=== PATIENT | male | born 1945 | race Caucasian/White ===

== ENCOUNTER 2016-08-29 12:19 | Inpatient (IN) | payer MEDICARE ==
[~2016-08-29] VITALS: Ht 170.2 cm; Wt 113.0 kg
[~2016-08-29 12:19] MED LIST changes: -ASPI1TAB69 PO; -DILA4TAB2 PO; -LISI-515 PO; -MULT1TAB85 PO; -MULTTAB67 PO; -PRIN20TA2 PO; -TAMS0.4C4 PO; -VITA10002 PO; -WALKER WHEELS/F1 MIS
[2016-08-29] MEDS ORDERED: MULTTAB67 PO (12:30)
[2016-08-29] MEDS ORDERED: TAMS0.4C4 PO (12:30)
[2016-08-29] MEDS ORDERED: VITA10002 PO (12:30)
[2016-08-29] MEDS ORDERED: ASPI1TAB69 PO (12:30)
[2016-08-29] MEDS ORDERED: LISI-515 PO (12:30)
--- NOTE | 2016-08-31 17:19 | MH ---
cc: TYLOR MANZANO MD, ROHIT K. M.D. IRANPUR, PERVEZ M.D. CROUCH, EUGENE M. MD DATE OF ADMISSION 09/02/2016 ADMISSION DIAGNOSIS Lumbar degenerative disk disease HISTORY OF PRESENT ILLNESS This is a 71-year-old male who presented to us for evaluation of bilateral posterior leg pain. He states the pain started years ago in the inferior aspect of his buttocks and radiates into the posterior calves bilaterally. On the left side he has pain that radiates into the left lateral leg to the ankle which also started about a month ago. He describes the pain as being sharp and intermittent. He has been to pain management and had injections which are becoming less effective. He states the injections last approximately four weeks. He has been to physical therapy which did not help much. He denies any bowel or bladder incontinence. He states walking seems to aggravate his symptoms and usually uses a cane. Driving more than 5-10 minutes aggravates his symptoms. He experiences back pain, but most of his pain is in the posterior aspect of the thighs radiating into the lateral calves and ankles. He states in the mornings his pain is 10/10. MRI of the lumbar spine from June 13, 2016 reveals extensive degenerative scoliosis as well as L3-L4 grade 1 spondylolisthesis with severe spinal stenosis from facet ligamentum flavum hypertrophy along with degenerative disk disease at multiple levels. PAST MEDICAL HISTORY 1. Hypertension, 2. Coronary artery disease with bypass surgery in 1998, 3. Hyperlipidemia, 4. Osteoarthritis with hip replacement in 1985 initially and then two other times; he is unsure of the dates 5. Knee replacement in 2000 MEDICATIONS Current, 1. Lisinopril 20 mg daily. 2. Triamterene/Hydrochlorothiazide 37.5 daily. 3. Atorvastatin 80 mg daily. 4. Flomax 0.4 mg daily 5. Fluoxetine 60 mg daily. 6. Gabapentin 600 mg. He takes 4 tablets a day. ALLERGIES CODEINE - HEADACHE FAMILY HISTORY His mother is at 81 years old of a stroke. His father is at 25 as a casualty of World War II. His brother is alive 60 years old in good health. 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 He is single. He has two children. He quit smoking 30 years ago. He drinks 0-2 drinks per week of alcohol. REVIEW OF SYSTEMS CONSTITUTIONAL: Denies any fever or chills. EARS, NOSE AND THROAT: No pharyngitis, exudates or bloody drainage from his nose CARDIOVASCULAR: Denies any chest pain or palpitations RESPIRATORY: No cough or shortness of breath. GENITOURINARY: No dysuria or hematuria. MUSCULOSKELETAL: Positive for low back pain and leg pain. SKIN: No rashes or pruritus. NEUROLOGIC: No difficulty with speech or memory GASTROINTESTINAL: No nausea, vomiting or abdominal pain PSYCHIATRIC: No anxiety or depression symptoms ENDOCRINE: No polyuria or polydipsia. HEMATOLOGIC: Positive for bruising but no bleeding tendencies PHYSICAL EXAMINATION HEAD: Normocephalic, atraumatic NECK: Supple. No carotid bruits heard on auscultation. LUNGS: Clear to auscultation bilaterally. CARDIAC: Rate and rhythm normal, S1, S2 ABDOMEN: Soft, nontender. Positive bowel sounds. SKIN: No cyanosis or erythema. MUSCULOSKELETAL: He has 5/5 strength in the lower extremities. He ambulates without an assistive device NEUROLOGIC: He is awake, alert, oriented. Cranial nerves II-XII are grossly intact. His speech is fluent. Comprehension is good. Reflexes are 2+ in the lower extremities. IMPRESSION A 70-year-old male with progressively worsening low back pain, in particular, neurogenic claudication symptoms and limited ambulatory status even with a cane. He has severe L3-L4 spinal stenosis from facet ligamentum flavum hypertrophy along with degenerative disk disease and a grade 1 spondylolisthesis. He has multilevel degenerative disk disease and facet arthropathy at other levels along with degenerative scoliosis. He has failed conservative treatment measures including physical therapy and he is requesting that we undertake surgical intervention. PLAN We have discussed the treatment options with the patient and we have recommended an L3-L4 transforaminal decompression with interbody fusion and pedicle screw fixation. The procedure as well as the risk, benefit, alternative and recovery time were explained in great detail with the patient. We have discussed the risks along with surgery include but not limited to bleeding, infection, muscle weakness, voice hoarseness, difficulty swallowing, heart attack, stroke, blood clots, non fusion, scar tissue formation, among others. We have obtained cardiac clearance from Dr. Manzano. The patient understands the procedure as well as the risks involved and is requesting that we proceed and is therefore scheduled accordingly. Jr Medina MD Dictated by JEROME Corrales/ /1:24 PM /4:46 PM
[2016-09-02] MEDS ORDERED: SODIUM CHLORID 0.9% 500 ML IV SCH (06:30)
[2016-09-02] MEDS ORDERED: VANCOMYCIN 1,000 MG/NS 250 ML IV SCH ×2 (06:30)
[2016-09-02] MEDS ORDERED: METOPROLOL TARTRATE 25 MG TAB PO PRN (06:30)
[2016-09-02] MEDS ORDERED: SODIUM CHLOR 0.9% 1000 ML INJ 1,000 ML IV SCH (06:30)
[2016-09-02] MEDS ORDERED: LACTATED RINGER'S 1000 ML IV SCH (06:30)
[2016-09-02] MEDS ORDERED: INSULIN HUMAN REGULAR 1,000 UNITS/10 ML VIAL SQ PRN (06:30)
[2016-09-02] MEDS ORDERED: ACETAMINOPHEN 1000 MG/100 ML VIAL IV ONE (06:44)
[2016-09-02] MEDS ORDERED: ARTIFICIAL TEARS OPTH OINT 3.5 APPLIC/3.5 GM TUBO ONE (06:45)
[2016-09-02] MEDS ORDERED: MULT1TAB85 PO (07:18)
[2016-09-02 07:25] VITALS: BP 150/88; PULSE 57; RESP 20; TEMP 98; O2SAT 99
[2016-09-02] MEDS ORDERED: GELFOAM SIZE 100 ONE (07:55)
[2016-09-02] MEDS ORDERED: THROMBIN (TOPICAL) 5,000 UNIT VIAL ONE (07:55)
[2016-09-02] MEDS ORDERED: FAMOTIDINE 20 MG/2 ML VIAL ONE (08:31)
[2016-09-02] MEDS ORDERED: DEXAMETHASONE SOD PHOS 4 MG/ML VIAL ONE (08:32)
[2016-09-02] MEDS ORDERED: MIDAZOLAM HCL 2 MG/2 ML VIAL ONE (08:32)
[2016-09-02] MEDS: BUPIVACAINE/EPINEPHRINE 0.5% PF 30 ML VIAL ONE ×2 (09:34→12:55)
[2016-09-02] MEDS: VANCOMYCIN HCL 1000 MG VIAL ONE ×2 (09:45→12:59)
[2016-09-02] MEDS ORDERED: ONDANSETRON HCL 4 MG/2 ML VIAL IV PUSH ONE (12:00)
[2016-09-02] MEDS ORDERED: ePHEDrine/NS 25 MG/5 ML SYR IV ONE (12:00)
[2016-09-02] MEDS ORDERED: VASOPRESSIN INJ 20 UNITS/ML VIAL IV ONE (12:00)
[2016-09-02] MEDS ORDERED: PROPOFOL 200 MG/20 ML AMP IV ONE (12:00)
[2016-09-02] MEDS ORDERED: PHENYLEPH/NS 1000 MCG/10 ML SYR IV ONE (12:00)
[2016-09-02] MEDS ORDERED: SODIUM CHLORID 0.9% 500 ML INJ 500 ML IV ONE (12:00)
[2016-09-02] MEDS ORDERED: LACTATED RINGER'S 1000 ML INJ 1,000 ML IV ONE (12:00)
[2016-09-02] MEDS ORDERED: CALCIUM GLUCONATE INJ 1 GM in SODIUM CHLORIDE 0.9% INJ 100 ML IV PRN (13:32)
[2016-09-02] MEDS ORDERED: POTASSIUM CHLOR 20 MEQ PREMIX 100 ML IV PRN (13:32)
[2016-09-02] MEDS ORDERED: DO NOT ADM ANY ANTICOAGULANT DRUGS XX PRN (13:32)
[2016-09-02] MEDS ORDERED: MAGNESIUM SULFATE INJ 2 GM in SODIUM CHLORIDE 0.9% INJ 100 ML IV PRN (13:32)
--- NOTE | 2016-09-02 13:34 | PD.OP ---
MD Pieter Og MD Operative Report Date of Surgery: Sep 02, 2016 Preoperative Diagnosis: Severe L3-4 degenerative disc disease with grade 1 spondylolisthesis, facet and ligamentum flavum hypertrophy and severe spinal stenosis; intractable low back pain with neurogenic claudication Postoperative Diagnosis: Same Procedure: Lumbar L3-4 transforaminal interbody fusion; bilateral L3-4 decompressive laminectomies; L3-4 pedicle screw fixation; L3-4 interbody cage placement; microsurgical technique Anesthesia: Gen. endotracheal by Lori Tate Surgeon: Jr Medina M.D. Event Lighting Specialist(s): Erica Larkin Operation and Findings: Following initiation of general endotracheal anesthesia, the patient had a Cooper catheter placed along with sequential compression devices. A gram of vancomycin was administered intravenously and he was turned in a prone position on a Juliocesar frame, on a Jim table, and all pressure points adequately padded. The lumbosacral region was then prepped with Chloraprep and sterilely draped with Ioban along the usual sterile draping. A midline skin incision was then made extending from the L3-4 level after infiltrating the skin with 0.5% Marcaine with epinephrine solution extending down through the fascia. The muscle fibers were split using avascular fatty plane and detached from the underlying facets, transverse process and lateral portion of lamina on the left side and a self-retaining retractor used for exposure. Intraoperative fluoroscopy was also used for level of confirmation along with microscope magnification for further dissection. There was significant facet and ligamentum flavum hypertrophy noted at the L3-4 levels. Bilateral L3 and L4 lamina as well as the medial portion of the left L3-4 facet was resected with a drill bit along with the lamina and there was severe foraminal and spinal stenosis from hypertrophied ligamentum flavum and facet which were decompressed bilaterally. The hypertrophied ligamentum flavum was adherent to the dura but this was dissected out without any perforation or CSF leak. There was significant disc height collapse along with disc protrusion and spondylolisthesis also leading to the foraminal stenosis. Epidural hemostasis was achieved with bipolar cautery and Gelfoam with thrombin. Subsequently entered into the disc space at the L3-4 level with a #15 blade and dru were used for discectomy. I then placed PEEK cage packed with local autograft bone and more local autograft bone was packed adjacent to the cage in interspace for added interbody fusion. With placement of the cage, I was able to distract the interspace and opened up the foramen further bilaterally. Subsequently in order to facilitate the fusion and provide stabilization, pedicle screw fixation was undertaken using Penhook spine screws on entry point at the left L3 and L4 levels at the junction of the transverse process and facet. Subsequently using AP and lateral fluoroscopy tap and screw placement. The screws were then connected with a tory and locked in place with caps. The construct appeared very secure at this point. The area was then copiously irrigated with Vancomycin solution and powder. The retractors were removed and the bipolar cautery used for hemostasis. The muscle fascia was then approximated using 2-0 Vicryl interrupted stitches and then 3-0 Vicryl subcuticular stitches also placed in interrupted fashion. The final skin closure was completed with Mastisol and Steri-Strips. A sterile dressing was then applied. The patient then turned in supine position, extubated and taken to recovery room. There were no intraoperative complications. All sponge and needle counts were correct at the end of procedure. Estimated blood loss about 300 ml. Jr Medina MD Sep 02, 2016 13:34
[2016-09-02] MEDS ORDERED: fentaNYL CITRATE 250 MCG/5 ML AMP ONE (13:42)
[2016-09-02] MEDS ORDERED: ONDANSETRON HCL 4 MG/2 ML VIAL IV PRN (13:45)
[2016-09-02] MEDS ORDERED: SODIUM CHLORIDE 0.9% FLUSH 10 ML FLUSH IV FLUSH PRN (13:45)
[2016-09-02] MEDS ORDERED: ALUMINUM/MAGNESIUM/SIMETH 30 ML CUP PO PRN (13:45)
[2016-09-02] MEDS ORDERED: HYDROmorphone HCL 2 MG TAB PO PRN (13:45)
[2016-09-02] MEDS ORDERED: CYCLOBENZAPRINE HCL 10 MG TAB PO PRN (13:45)
[2016-09-02] MEDS ORDERED: ZOLPIDEM TARTRATE 5 MG TAB PO PRN (13:45)
[2016-09-02] MEDS ORDERED: MENTHOL LOZENGE SUCK-ON PRN (13:45)
[2016-09-02] MEDS ORDERED: cloNIDine HCL 0.1 MG TAB PO PRN (13:45)
[2016-09-02] MEDS ORDERED: RESP: ALBUTEROL 2.5 MG/3 ML NEB (PRN) NEB (13:45)
[2016-09-02] MEDS ORDERED: MORPHINE SULFATE 30 MG/30 ML PCA IV SCH (13:45)
[2016-09-02] MEDS ORDERED: NALOXONE HCL 0.4 MG/ML AMP IV PRN (13:45)
[2016-09-02] MEDS ORDERED: diphenhydrAMINE HCL 50 MG/ML VIAL IV PRN (13:45)
[2016-09-02] MEDS: PCA - TOTAL MG MORPHINE DELIVERED PER SHIFT SCH ×2 (14:00→20:27)
[2016-09-02] MEDS: NS + KCL 20 MEQ INJ 1,000 ML IV SCH ×2 (14:30→23:55)
[2016-09-02 14:34] LABS: AUTOMATED NEUTROPHIL # 8.4 TH/MM3 (1.8-7.7); BASOPHIL % 0.2 % (0.0-2.0); EOSINOPHIL % 0.2 % (0.0-4.0); HEMATOCRIT 29.1 % (39.0-51.0); HEMO FLAGS DIFF FINAL; LYMPH % 5.6 % (9.0-44.0); LYMPHOCYTE # 0.5 TH/MM3 (1.0-4.8); MEAN CELL VOLUME 92.2 FL (80.0-100.0); MEAN CORPUSCULAR HEMOGLOBIN 31.3 PG (27.0-34.0); MONO % 1.7 % (0.0-8.0); NEUT % 92.3 % (16.0-70.0); PLATELET COUNT 154 TH/MM3 (150-450); RED BLOOD COUNT 3.15 MIL/MM3 (4.50-5.90); RED CELL DISTRIBUTION WIDTH 13.1 % (11.6-17.2); WHITE BLOOD COUNT 9.1 TH/MM3 (4.0-11.0)
[2016-09-02 14:37] LABS: BICARBONATE 25.5 MEQ/L (21.0-32.0); MAGNESIUM 1.8 MG/DL (1.5-2.5); POTASSIUM 3.9 MEQ/L (3.5-5.1)
--- NOTE | 2016-09-02 14:39 | RADRPT ---
EXAM DATE/TIME: 09/02/2016 08:42 [facility] COMPARISON: No previous studies available for comparison. INDICATIONS : L3-L4 posterior lumbar fusion. Level localization. MEDICAL HISTORY : None. SURGICAL HISTORY : None. ENCOUNTER: Initial ACUITY: 1 day PAIN SCORE: Non-responsive. LOCATION: Lumbar spine. FINDINGS: Metallic probe is directed at L3-4. CONCLUSION: Probe at L3-4. Merrill Chen MD FACR on September 02, 2016 at 14:24 Board Certified Radiologist. This report was verified electronically.
--- NOTE | 2016-09-02 14:42 | RADRPT ---
EXAM DATE/TIME: 09/02/2016 08:42 [facility] COMPARISON: No previous studies available for comparison. INDICATIONS : Post op. L3-L4 posterior lumbar fusion. MEDICAL HISTORY : None. SURGICAL HISTORY : None. ENCOUNTER: Initial ACUITY: 1 day PAIN SCORE: Non-responsive. LOCATION: Lumbar spine FINDINGS/CONCLUSION: The patient is status-post unilateral left transpedicular fixation at L3-4 in anatomic alignment. Merrill Chen MD FACR on September 02, 2016 at 14:23 Board Certified Radiologist. This report was verified electronically.
[2016-09-02] MEDS ORDERED: SUGAMMADEX SODIUM 200 MG/2 ML VIAL IV PUSH ONE ×2 (15:34)
[2016-09-02 17:10] VITALS: BP 134/74; PULSE 68; RESP 17; TEMP 96.7; O2SAT 100
[2016-09-02] MEDS: GABAPENTIN 300 MG CAP PO SCH (17:53)
[2016-09-02] MEDS: DOCUSATE SODIUM 100 MG CAP PO SCH (20:26)
[2016-09-02] MEDS: ASPIRIN EC 81 MG TABEC PO SCH (20:26)
[2016-09-02] MEDS: SODIUM CHLORIDE 0.9% FLUSH 10 ML FLUSH IV FLUSH SCH (20:26)
[2016-09-02] MEDS: ATORVASTATIN 80 MG TAB PO SCH (20:26)
[2016-09-02] MEDS: MULTIVITAMINS/MINERALS THERAPEUTIC TAB PO SCH (20:26)
[2016-09-02] MEDS: TAMSULOSIN HCL 0.4 MG CAP PO SCH (20:27)
[2016-09-02] MEDS: CYANOCOBALAMIN 1,000 MCG TAB PO SCH (20:27)
[2016-09-02 21:30] VITALS: BP 88/52; PULSE 52; RESP 17; TEMP 98.4; O2SAT 95
[2016-09-03] VITALS (8 sets, daily range): BP systolic 92–205; BP diastolic 51–95; PULSE 55–80; RESP 16–20; TEMP 96.6–100.2; O2SAT 92–99
[2016-09-03] MEDS: PCA - TOTAL MG MORPHINE DELIVERED PER SHIFT SCH (06:00)
[2016-09-03] MEDS: MAGNESIUM HYDROXIDE SUSP 30 ML CUP PO PRN (07:42)
[2016-09-03] MEDS: POLYETHYLENE GLYCOL 17 GM PKG PO SCH (07:42)
[2016-09-03] MEDS: LISINOPRIL 20 MG TAB PO SCH (07:43)
[2016-09-03] MEDS: PANTOPRAZOLE SOD 40 MG DELAYED RELEASE TAB PO SCH (07:43)
[2016-09-03] MEDS: DOCUSATE SODIUM 100 MG CAP PO SCH ×2 (07:43→20:50)
[2016-09-03] MEDS: DULoxetine HCl DR 60 MG CAP PO SCH (07:43)
[2016-09-03] MEDS: CYANOCOBALAMIN 1,000 MCG TAB PO SCH ×2 (07:43→20:50)
[2016-09-03] MEDS: GABAPENTIN 300 MG CAP PO SCH ×3 (07:43→17:46)
[2016-09-03] MEDS: MULTIVITAMINS/MINERALS THERAPEUTIC TAB PO SCH ×2 (07:44→20:50)
[2016-09-03] MEDS: TRIAMTERENE/HCTZ 37.5 MG/25 MG TAB PO SCH (07:44)
[2016-09-03] MEDS: SODIUM CHLORIDE 0.9% FLUSH 10 ML FLUSH IV FLUSH SCH ×2 (07:53→20:50)
[2016-09-03] MEDS: NS + KCL 20 MEQ INJ 1,000 ML IV SCH ×2 (07:53→09:44)
--- NOTE | 2016-09-03 10:24 | HHI.NSPN ---
(Maciel Gibbons) History Chief Complaint: Incisional pain (Maciel Gibbons) Interval History 09/03/16: Pt underwent bilateral L3/L4 decompressive laminectomy with L3/L4 TLIF with pedicle screw fixation. He complains of incisional pain but controlled. Request the DIRECTOR PROFESSIONAL SERVICES to be stopped. Mild discomfort radiating into the left lateral thigh. No numbness or paresthesias in LEs. (Maciel Gibbons) Review of Systems General: Negative for: fever, chills, insomnia Respiratory: Negative for: shortness of breath, cough, sputum Cardiovascular: Negative for: chest pain Gastrointestinal: Negative for: nausea, vomitting, diarrhea, constipation ( Maciel Gibbons) Exam Results Vital Signs Date Time Temp Pulse Resp B/P Pulse Ox O2 Delivery O2 Flow Rate FiO2 09/03/16 07:53 Room Air 09/03/16 06:00 16 09/03/16 04:00 97.7 62 100/52 96 09/02/16 20:33 2.00 Intake and Output 09/02/16 09/02/16 09/03/16 08:00 16:00 00:00 Intake Total 3150 ml 720 ml Output Total 1050 ml 550 ml Balance 2100 ml 170 ml (Maciel Gibbons) Physical Examination Resp: CTA bilaterally Heart: NSR no murmurs Abd: Soft positive bs Skin: No cyanosis or erythema. Pt sitting up in chair with brace on. Muscle: Moves LEs well. Ambulated short distance. Sitting up in chair with LSO brace on. Neuro: Pt awake and alert. Follows commands well. Speech clear and appropriate. (Maciel Gibbons) Lab, Micro, Other Results Last Impressions Lumbar Spine X-Ray 09/02/16 0000 Signed Impressions: Service Date/Time: Friday, September 02, 2016 08:42 - CONCLUSION: The patient is status-post unilateral left transpedicular fixation at L3-4 in anatomic alignment. Merrill Chen MD FACR Laboratory Tests Test 09/02/16 14:16 White Blood Count 9.1 TH/MM3 Red Blood Count 3.15 MIL/MM3 Hemoglobin 9.9 GM/DL Hematocrit 29.1 % Mean Corpuscular Volume 92.2 FL Mean Corpuscular Hemoglobin 31.3 PG Mean Corpuscular Hemoglobin 34.0 % Concent Red Cell Distribution Width 13.1 % Platelet Count 154 TH/MM3 Mean Platelet Volume 8.6 FL Neutrophils (%) (Auto) 92.3 % Lymphocytes (%) (Auto) 5.6 % Monocytes (%) (Auto) 1.7 % Eosinophils (%) (Auto) 0.2 % Basophils (%) (Auto) 0.2 % Neutrophils # (Auto) 8.4 TH/MM3 Lymphocytes # (Auto) 0.5 TH/MM3 Monocytes # (Auto) 0.2 TH/MM3 Eosinophils # (Auto) 0.0 TH/MM3 Basophils # (Auto) 0.0 TH/MM3 CBC Comment DIFF FINAL Differential Comment Sodium Level 141 MEQ/L Potassium Level 3.9 MEQ/L Chloride Level 106 MEQ/L Carbon Dioxide Level 25.5 MEQ/L Anion Gap 10 MEQ/L Blood Urea Nitrogen 18 MG/DL Creatinine 0.78 MG/DL Estimat Glomerular Filtration 98 ML/MIN Rate Random Glucose 142 MG/DL Calcium Level 8.0 MG/DL Magnesium Level 1.8 MG/DL 09/02/16 09/02/16 09/03/16 15:00 23:00 07:00 Intake Total 3000 ml 870 ml 90 ml Output Total 800 ml 800 ml 375 ml Balance 2200 ml 70 ml -285 ml Intake Oral 240 ml 90 ml IV Total 630 ml Other 3000 ml Output Urine Total 500 ml 800 ml 375 ml Estimated Blood Loss 300 ml # Bowel Movements 0 (Maciel Gibbons) Medical Decision Making Impression and Plan A: 71 y/o M s/p L3/L4 decompressive laminectomy with L3/L4 TLIF with pedicle screw fixation. P: Continue to monitor Continue with current care- Pain control and PT D/C DIRECTOR PROFESSIONAL SERVICES (Maciel Gibbons) Attending Statement The exam, history, and the medical decision-making described in the above note were completed with the assistance of the mid-level provider. I reviewed and agree with the findings presented. I attest that I had a [id number] encounter with the patient on the same day, and personally performed and documented my assessment and findings in the medical record. (Jr Medina MD) Maciel Gibbons Sep 03, 2016 10:24 Jr Medina MD Sep 03, 2016 11:12
[2016-09-03] MEDS ORDERED: MORPHINE SULFATE 4 MG/ML INJ IV PUSH PRN (11:15)
[2016-09-03] MEDS: HYDROmorphone HCL 4 MG TAB PO PRN ×2 (13:46→17:46)
[2016-09-03] MEDS: ACETAMINOPHEN 325 MG TAB PO PRN (20:50)
[2016-09-03] MEDS: ASPIRIN EC 81 MG TABEC PO SCH (20:50)
[2016-09-03] MEDS: TAMSULOSIN HCL 0.4 MG CAP PO SCH (20:50)
[2016-09-03] MEDS: ATORVASTATIN 80 MG TAB PO SCH (20:50)
[2016-09-04 00:19] VITALS: BP 108/55; PULSE 68; RESP 19; TEMP 97; O2SAT 94
[2016-09-04] MEDS: HYDROmorphone HCL 4 MG TAB PO PRN ×3 (01:56→18:31)
[2016-09-04] MEDS: DULoxetine HCl DR 60 MG CAP PO SCH (08:30)
[2016-09-04] MEDS: DOCUSATE SODIUM 100 MG CAP PO SCH ×2 (08:30→19:34)
[2016-09-04] MEDS: GABAPENTIN 300 MG CAP PO SCH ×3 (08:30→18:27)
[2016-09-04] MEDS: MULTIVITAMINS/MINERALS THERAPEUTIC TAB PO SCH ×2 (08:31→19:34)
[2016-09-04] MEDS: CYANOCOBALAMIN 1,000 MCG TAB PO SCH ×2 (08:31→19:35)
[2016-09-04] MEDS: MAGNESIUM HYDROXIDE SUSP 30 ML CUP PO PRN ×2 (08:31→19:34)
[2016-09-04] MEDS: PANTOPRAZOLE SOD 40 MG DELAYED RELEASE TAB PO SCH (08:31)
[2016-09-04] MEDS: POLYETHYLENE GLYCOL 17 GM PKG PO SCH (08:31)
[2016-09-04] MEDS: SODIUM CHLORIDE 0.9% FLUSH 10 ML FLUSH IV FLUSH SCH ×2 (08:31→19:35)
[2016-09-04 09:00] VITALS: BP 100/62; PULSE 64; RESP 20; TEMP 101.2; O2SAT 91
[2016-09-04] MEDS: LISINOPRIL 20 MG TAB PO SCH (09:00)
[2016-09-04] MEDS: TRIAMTERENE/HCTZ 37.5 MG/25 MG TAB PO SCH (09:00)
--- NOTE | 2016-09-04 10:06 | HHI.NSPN ---
(Maciel Gibbons) History Chief Complaint: Incisional pain (Maciel Gibbons) Interval History 09/03/16: Pt underwent bilateral L3/L4 decompressive laminectomy with L3/L4 TLIF with pedicle screw fixation. He complains of incisional pain but controlled. Request the KETTLE ROOM HELPER to be stopped. Mild discomfort radiating into the left lateral thigh. No numbness or paresthesias in LEs. 09/04/16: Pt complains of increased back soreness today. He is off the KETTLE ROOM HELPER. No radiculopathy in LEs. No paresthesias in LEs. Moves LEs with good strength. (Maciel Gibbons) Review of Systems General: Negative for: fever, chills, insomnia Respiratory: Negative for: shortness of breath, cough, sputum Cardiovascular: Negative for: chest pain Gastrointestinal: Negative for: nausea, vomitting, diarrhea, constipation ( Maciel Gibbons) Exam Results Vital Signs Date Time Temp Pulse Resp B/P Pulse Ox O2 Delivery O2 Flow Rate FiO2 09/04/16 09:00 101.2 64 20 100/62 91 09/03/16 22:01 21 09/03/16 07:53 Room Air 09/02/16 20:33 2.00 Intake and Output 09/03/16 09/03/16 09/04/16 08:00 16:00 00:00 Intake Total 90 ml 2485 ml 480 ml Output Total 375 ml 1150 ml 400 ml Balance -285 ml 1335 ml 80 ml (Maciel Gibbons) Physical Examination Resp: CTA bilaterally Heart: NSR no murmurs Abd: Soft positive bs Skin: No cyanosis or erythema. RN changed bandage this morning. Dry. Muscle: Moves LEs well. Ambulated short distance. Neuro: Pt awake and alert. Follows commands well. Speech clear and appropriate. (Maciel Gibbons) Lab, Micro, Other Results 09/03/16 09/03/16 09/04/16 15:00 23:00 07:00 Intake Total 2485 ml 480 ml 720 ml Output Total 1150 ml 400 ml 1900 ml Balance 1335 ml 80 ml -1180 ml Intake Oral 720 ml 480 ml 720 ml IV Total 1765 ml Output Urine Total 1150 ml 400 ml 1900 ml # Bowel Movements 0 0 0 (Maciel Gibbons) Medical Decision Making Impression and Plan A: 71 y/o M s/p L3/L4 decompressive laminectomy with L3/L4 TLIF with pedicle screw fixation. P: Continue to monitor Continue with current care- Pain control and PT (Maciel Gibbons) Attending Statement The exam, history, and the medical decision-making described in the above note were completed with the assistance of the mid-level provider. I reviewed and agree with the findings presented. I attest that I had a [id number] encounter with the patient on the same day, and personally performed and documented my assessment and findings in the medical record. (Jr Medina MD) Maciel Gibbons Sep 04, 2016 10:06 Jr Medina MD Sep 04, 2016 16:41
[2016-09-04] MEDS: ACETAMINOPHEN 325 MG TAB PO PRN (10:59)
[2016-09-04] MEDS ORDERED: WALKER WHEELS/F1 MIS (11:43)
[2016-09-04 11:44] VITALS: BP 93/57; PULSE 67; RESP 17; TEMP 99.1; O2SAT 91
[2016-09-04] MEDS: BACLOFEN 10 MG TAB PO SCH ×2 (13:35→21:40)
[2016-09-04] MEDS ORDERED: BISACODYL 10 MG SUPP RECTAL PRN (15:00)
[2016-09-04 16:15] VITALS: BP 138/76; PULSE 62; RESP 16; TEMP 98.8; O2SAT 97
[2016-09-04] MEDS: ASPIRIN EC 81 MG TABEC PO SCH (19:34)
[2016-09-04] MEDS: TAMSULOSIN HCL 0.4 MG CAP PO SCH (19:35)
[2016-09-04] MEDS: ATORVASTATIN 80 MG TAB PO SCH (19:35)
[2016-09-04 20:00] VITALS: BP 127/81; PULSE 74; RESP 16; TEMP 99.9; O2SAT 98
[2016-09-05 00:09] VITALS: BP 106/62; PULSE 70; RESP 20; TEMP 96.2; O2SAT 95
[2016-09-05] MEDS: HYDROmorphone HCL 4 MG TAB PO PRN ×2 (03:07→09:34)
[2016-09-05 04:13] VITALS: BP 108/62; PULSE 69; RESP 20; TEMP 99.1; O2SAT 96
[2016-09-05] MEDS: BACLOFEN 10 MG TAB PO SCH (06:07)
[2016-09-05 08:00] VITALS: BP 121/70; PULSE 79; RESP 18; TEMP 98.7; O2SAT 94
[2016-09-05] MEDS: TRIAMTERENE/HCTZ 37.5 MG/25 MG TAB PO SCH (09:00)
[2016-09-05] MEDS: POLYETHYLENE GLYCOL 17 GM PKG PO SCH (09:00)
[2016-09-05] MEDS: LISINOPRIL 20 MG TAB PO SCH (09:00)
[2016-09-05] MEDS: DOCUSATE SODIUM 100 MG CAP PO SCH (09:00)
[2016-09-05] MEDS: SODIUM CHLORIDE 0.9% FLUSH 10 ML FLUSH IV FLUSH SCH (09:00)
[2016-09-05] MEDS: PANTOPRAZOLE SOD 40 MG DELAYED RELEASE TAB PO SCH (09:28)
[2016-09-05] MEDS: GABAPENTIN 300 MG CAP PO SCH (09:28)
[2016-09-05] MEDS: CYANOCOBALAMIN 1,000 MCG TAB PO SCH (09:28)
[2016-09-05] MEDS: MULTIVITAMINS/MINERALS THERAPEUTIC TAB PO SCH (09:28)
[2016-09-05] MEDS: DULoxetine HCl DR 60 MG CAP PO SCH (09:28)
--- NOTE | 2016-09-05 09:42 | HHI.NSPN ---
History Chief Complaint: Incisional pain Interval History 09/03/16: Pt underwent bilateral L3/L4 decompressive laminectomy with L3/L4 TLIF with pedicle screw fixation. He complains of incisional pain but controlled. Request the CREDIT CONTROL MANAGER to be stopped. Mild discomfort radiating into the left lateral thigh. No numbness or paresthesias in LEs. 09/04/16: Pt complains of increased back soreness today. He is off the CREDIT CONTROL MANAGER. No radiculopathy in LEs. No paresthesias in LEs. Moves LEs with good strength. 09/05/16: Pt feeling better today. Had BM this morning. Has some pain radiating into bilateral anterior thighs. States he thinks he will improve more at home. Review of Systems General: Negative for: fever, chills, insomnia Respiratory: Negative for: shortness of breath, cough, sputum Cardiovascular: Negative for: chest pain Gastrointestinal: Negative for: nausea, vomitting, diarrhea, constipation Exam Results Vital Signs Date Time Temp Pulse Resp B/P Pulse Ox O2 Delivery O2 Flow Rate FiO2 09/05/16 08:00 98.7 79 18 121/70 94 09/03/16 22:01 21 09/03/16 07:53 Room Air 09/02/16 20:33 2.00 Intake and Output 09/04/16 09/04/16 09/05/16 08:00 16:00 00:00 Intake Total 720 ml 480 ml 480 ml Output Total 1900 ml Balance -1180 ml 480 ml 480 ml Physical Examination Resp: CTA bilaterally Heart: NSR no murmurs Abd: Soft positive bs Skin: No cyanosis or erythema. RN changed bandage this morning. Dry. Muscle: Moves LEs well. Ambulating. Neuro: Pt awake and alert. Follows commands well. Speech clear and appropriate. Lab, Micro, Other Results 09/04/16 09/04/16 09/05/16 15:00 23:00 07:00 Intake Total 480 ml 480 ml 480 ml Output Total 800 ml Balance 480 ml 480 ml -320 ml Intake Oral 480 ml 480 ml 480 ml Output Urine Total 800 ml # Voids 2 2 # Bowel Movements 0 0 1 Medical Decision Making Impression and Plan A: 71 y/o M s/p L3/L4 decompressive laminectomy with L3/L4 TLIF with pedicle screw fixation. P: D/C home. Discussed restrictions Discussed incision care. Maciel Gibbons Sep 05, 2016 09:41
[2016-09-05] MEDS ORDERED: DILA4TAB2 PO (09:48)
[2016-09-05 09:56] VITALS: O2SAT 95
[2016-09-05 11:46] VITALS: BP 112/66; PULSE 86; RESP 19; TEMP 100.6; O2SAT 93
--- NOTE | 2016-11-01 15:25 | HHI.DS ---
Discharge Summary Admission Date Sep 02, 2016 at 05:43 Discharge Date: Sep 05, 2016 Admitting Diagnosis (1) Spondylolisthesis of lumbar region Diagnosis: Principal ICD Code: M43.16 (2) Scoliosis of lumbar spine Diagnosis: Principal ICD Code: M41.9 (3) Lumbar degenerative disc disease Diagnosis: Principal ICD Code: M51.36 (4) Lumbar stenosis with neurogenic claudication Diagnosis: Principal ICD Code: M48.06 (5) Facet arthropathy, lumbar Diagnosis: Principal ICD Code: M12.88 (6) Low back pain Diagnosis: Principal ICD Code: M54.5 Procedures Bilateral L3/L4 decompressive laminectomy with transforaminal interbody fusion with cage and pedicle screw fixation on 09/02/16 by Jr Medina MD. Brief History This is a 71-year-old male who present was for evaluation of bilateral posterior leg pain. He states the pain started years ago in the inferior aspect of his buttocks and radiates into the posterior calves bilaterally. Unless that he has pain that radiates into the left lateral leg to the ankle which started about a month ago. He describes the pain as being sharp and intermittent. He has been to pain management had injections which are becoming less effective. He states injections last approximately 4 weeks. He has been to physical therapy which did not help much. Denies any bowel or bladder incontinence. He states walking seems to exacerbate his symptoms he usually uses a cane. He states in the morning his pain is 10 out of 10. Imaging MRI of the lumbar spine from 06/13/16 reveals extensive degenerative scoliosis as well as L3/L4 grade 1 spondylolisthesis with severe spinal stenosis from facet and ligamentum flavum hypertrophy along with degenerative disc disease at multiple levels. Hospital Course Patient underwent the above-noted procedure performed by Dr. Medina. There was no intraoperative complications. Postoperatively patient was admitted to the med/surgical floor. PT was consult. Patient's activity status was increased. His pain was controlled and his ARTIFICIAL FLY TIER was discontinued. Patient was discharged home in stable condition. Pt Condition on Discharge: Stable Discharge Disposition: Discharge Home Discharge Instructions DIET: Follow Instructions for: As Tolerated, No Restrictions ACTIVITIES You can perform: Shower Only-No Bath Activities to Avoid: Lifting/Bending, Prolonged Standing, Strenuous Activity, Bathing, Driving ADDITIONAL Activity Instructio: Lumbar brace on when sitting, standing or walking. New Medications: Walker with Front Wheels (Walker with Front Wheels) 1 Mis Mis 1 EA .ROUTE DIRECTED #1 Ref 0 EA Hydromorphone (Dilaudid) 4 Mg Tab 4 MG PO Q4H PRN pain>6 #60 TAB Continued Medications: Aspirin (Aspirin) 81 Mg Tabdr 81 MG PO HS TAB Atorvastatin (Atorvastatin) 80 Mg Tab 80 MG PO HS Cholesterol Management #30 Ref 0 TAB Cyanocobalamin (Vitamin B-12) 1,000 Mcg Tab 1000 MCG PO BID Nutritional Supplement #1 Ref [address] (Duloxetine DR) 60 Mg Capdr 60 MG PO DAILY #30 Ref 0 CAP Gabapentin (Gabapentin) 600 Mg Tab 600 MG PO TID #90 Ref 0 TAB Lisinopril (Lisinopril) 20 Mg Tab 20 MG PO DAILY #30 Ref 0 TAB Multiple Vitamins W/ Minerals (Multivitamin Men) 1 Tab Tab 1 TAB PO BID Nutritional Supplement Ref 0 TAB Tamsulosin (Tamsulosin) 0.4 Mg Cap 0.4 MG PO HS Manage Prostate Problems #30 Ref 0 CAP Triamterene-Hydrochlorothiazide (Triamterene-Hydrochlorothiazide) 37.5-25 Mg Tab 1 TAB PO DAILY #30 Ref 0 TAB Maciel Gibbons November 01, 2016 15:25
== END 2016-09-05 13:23 | disposition home or self-care (01) | DRG 460 ==
LOC: HSDI 09-02 05:43 → N06B 09-02 16:33
PROVIDERS: ADMIT Neurological Surgery; ATTEND Neurological Surgery
PROC: 0ST20ZZ Resection of Lumbar Vertebral Disc, Open Approach (ICD-10-PCS; 2016-09-02)
PROC: 0SG00AJ Fusion of Lumbar Vertebral Joint with Interbody Fusion Device, Posterior Approach, Anterior Column, Open Approach (ICD-10-PCS; principal; 2016-09-02 08:37)
DX: M48.06 Spinal stenosis, lumbar region (principal); M06.9 Rheumatoid arthritis, unspecified; M41.80 Other forms of scoliosis, site unspecified; F03.90 Unspecified dementia, unspecified severity, without behavioral disturbance, psychotic disturbance, mood disturbance, and anxiety; I10 Essential (primary) hypertension; E78.5 Hyperlipidemia, unspecified; M46.90 Unspecified inflammatory spondylopathy, site unspecified; M51.36 Other intervertebral disc degeneration, lumbar region; M43.16 Spondylolisthesis, lumbar region; I25.10 Atherosclerotic heart disease of native coronary artery without angina pectoris; Z87.891 Personal history of nicotine dependence; Z95.1 Presence of aortocoronary bypass graft; Z96.651 Presence of right artificial knee joint; Z96.642 Presence of left artificial hip joint
CPT/HCPCS: 72020; 72100; 76000; 80048; 83735; 85025; 86850; 86900; 86901; 94150; C1713; J0131; J0690; J1100; J2250; J2270; J2370; J2405; J3010; J3370; J3475; J3480; J7040; J7050; J7120; L0627

== ENCOUNTER → 2016-08-29 | Outpatient (CLI) | payer MEDICARE ==
[~2016-08-29] MED LIST: ASPI1TAB69 PO; ATOR1TAB18 PO; DILA4TAB2 PO; DULO1CAP3 PO; GABA600T PO; LISI-515 PO; MULT1TAB85 PO; MULTTAB67 PO; PRIN20TA2 PO; TAMS0.4C4 PO; TRIA37.5 PO; VITA10002 PO; WALKER WHEELS/F1 MIS
== END ==
LOC: CPRE 12:16
PROVIDERS: ATTEND Neurological Surgery
DX: M48.06 Spinal stenosis, lumbar region (principal)

== ENCOUNTER → 2017-03-27 | Outpatient (CLI) | payer MEDICARE ==
[~2017-03-27] MED LIST changes: +ASPI-110 PO; +DILA4TAB2 PO; -DULO1CAP3 PO; -GABA600T PO; +LISI-515 PO; +TAMS0.4C4 PO; +VITA10002 PO
[2017-03-27 08:13] LABS: BLOOD GAS BASE EXCESS 0.6 mmol/L (-2-2); BLOOD GAS CARBOXYHEMOGLOBIN 1.3 % (0-4); BLOOD GAS HCO3 24 mmol/L (22-26); BLOOD GAS METHEMOGLOBIN 1.2 % (0-2); BLOOD GAS O2 HGB SATURATION 95 % (90-100); BLOOD GAS OXYGEN CONTENT 16.4 Vol % (12.0-20.0); BLOOD GAS PCO2 37 mmHG (38-42); BLOOD GAS PO2 91 mmHG (61-120); BLOOD GAS TOTAL HGB 12.2 G/DL (12.0-16.0); CRITICAL VALUE NO; DRAW SITE RT RADIAL; FIO2 21 %; NUMBER OF ARTERIAL PUNCTURES 1; STAT NO; TEMP CORR TO 98.6; ULNAR PULSE PRESENT
--- NOTE | 2017-04-03 08:49 | RSPPFT ---
DATE OF PROCEDURE: 03/27/17 COMMENTS: Spirometry shows patient's flow values, lung volumes and DLCO are within the predicted range. IMPRESSION: 1. Normal spirometry.
== END ==
LOC: PHRSP 07:43
PROVIDERS: ATTEND Internal Medicine Pulmonary Disease
DX: R06.02 Shortness of breath (principal)
CPT/HCPCS: 36600; 82805; 94060; 94620; 94729